=== PATIENT | female | born 1955 | race Caucasian/White ===

== ENCOUNTER 2018-03-16 00:32 | Outpatient (CLI) | payer BC, SELFPAY ==
--- NOTE | 2018-03-16 09:14 | DI.MAMMO_ITS ---
SYMPTOM/DIAGNOSIS: ABNL MAMMO RT BREAST R92.8, 6 MO F/U RIGHT BREAST MAMMOGRAM: Mammograms were interpreted according to the usual protocol including computer analysis with CAD system, tomosynthesis and C view imaging. Craniocaudad and medial lateral images of the breast were obtained today. The breast tissue is of moderate radiodensity. There is no apparent mass and there are no suspicious calcifications and there has been no significant interval change when compared with prior images. SUMMARY: No evidence of malignancy, Category 1. Yearly screening mammography is recommended. Breast density category B. MQSA ASSESSMENT OF FINDINGS: Negative. Category 1. Patient will receive a letter notifying them of these results. BI-RADS category B. There are scattered areas of fibroglandular density.
== END 2018-03-16 00:52 ==
PROVIDERS: PCP Internal Medicine; Visit Provider Obstetrics & Gynecology Gynecology
DX: Z12.31 Encounter for screening mammogram for malignant neoplasm of breast (principal); R92.8 Other abnormal and inconclusive findings on diagnostic imaging of breast; N64.59 Other signs and symptoms in breast
CPT/HCPCS: 77061; 77065; G0279

== ENCOUNTER 2018-09-13 10:53 | Outpatient (REF) | payer BC, SELFPAY ==
--- NOTE | 2018-09-13 10:00 | PAPFT_PTH ---
PATIENT: Madison Quan LOC: [facility] U#:[id number] AGE/SX: 63/F ROOM: RE09/13/[address]: Audrey Gutierrez : 1955 BED: DIS: 09/13/2018 SPEC #: [id number] RECD: 09/13/18 12:59 STATUS: TANG REEdgard #: [id number] SHAUN: 09/13/18 10:[address]: Audrey Gutierrez DEPT: [facility] Cytology RECD BY: Edel Pacheco ENTERED: 09/13/18 12:59 SP TYPE: PAPFT OTHR DR: Roni Babin Tissues: 1 - CX/ENDOCX FOR PAP SMEARS Procedures: PAP THIN PREP/UVM Screening HPV DNA PROBE Comments: [id number]
== END 2018-09-13 11:13 ==
LOC: LBN 10:53
PROVIDERS: PCP Internal Medicine; Visit Provider Obstetrics & Gynecology Gynecology
DX: Z12.4 Encounter for screening for malignant neoplasm of cervix (principal); Z11.51 Encounter for screening for human papillomavirus (HPV)
CPT/HCPCS: 88142; 87624

== ENCOUNTER 2019-12-19 11:33 | Outpatient (REF) | payer BC, SELFPAY ==
--- NOTE | 2019-12-19 11:00 | PAPFT_PTH ---
PATIENT: Madison Quan LOC: [facility] U#:[id number] AGE/SX: 64/F ROOM: RE12/19/[address]: GISELA Jackman : 1955 BED: DIS: 12/19/2019 SPEC #: [id number] RECD: 12/19/19 12:45 STATUS: TANG REQ #: [id number] SHAUN: 12/19/19 11:[address]: Christy Lazaro DEPT: [facility] Cytology RECD BY: Edel Pacheco ENTERED: 12/19/19 12:46 SP TYPE: PAPFT OTHR DR: Roni Babin Tissues: 1 - CX/ENDOCX FOR PAP SMEARS Procedures: PAP THIN PREP/UVM Screening HPV DNA PROBE Comments: [id number]
== END 2019-12-19 11:53 ==
LOC: LBN 11:33
PROVIDERS: PCP Internal Medicine; Visit Provider Nurse Practitioner Family
DX: Z12.4 Encounter for screening for malignant neoplasm of cervix (principal); Z11.51 Encounter for screening for human papillomavirus (HPV)
CPT/HCPCS: 88142; 87624

== ENCOUNTER 2020-01-05 13:14 | Outpatient (REF) | payer BC, SELFPAY ==
[2020-01-05 21:45] LABS: Calculated LDL 143 mg/dL (<100); Cholesterol 259 mg/dL (<200); HDL Cholesterol 101 mg/dL (40-60); Triglyceride 79 mg/dL (<150)
== END 2020-01-05 13:34 ==
LOC: NCHCN 13:14
PROVIDERS: PCP Internal Medicine; Visit Provider Internal Medicine
DX: Z00.00 Encounter for general adult medical examination without abnormal findings (principal)
CPT/HCPCS: 80061

== ENCOUNTER 2021-01-27 13:15 | Outpatient (REF) | payer BC, SELFPAY ==
[2021-01-29 13:36] LABS: COVID-19 RT-PCR UVMMC Result Negative (Negative)
== END 2021-01-27 13:16 | disposition home or self-care (01) ==
LOC: NCHCN 13:15
PROVIDERS: PCP Internal Medicine; Visit Provider Internal Medicine
DX: Z20.822 Contact with and (suspected) exposure to COVID-19 (principal)
CPT/HCPCS: U0003

== ENCOUNTER 2021-02-17 01:07 | Outpatient (CLI) | payer BC, SELFPAY ==
--- NOTE | 2021-02-17 09:00 | DI.MAMMO_ITS ---
Exam(s) MAMMO SCREENING EXAM: MAMMO SCREENING CLINICAL HISTORY: screening TECHNIQUE: Bilateral full field digital CC and MLO mammographic images were obtained with 3D tomosyn thesis and utilizing computer aided detection (CAD). COMPARISON: Available for comparison. FINDINGS: Masses/Architectural Distortion: None seen. Microcalcifications: No suspicious pleomorphic-type are seen. Skin Thickening/Nipple Retraction: None. IMPRESSION: 1. No significant interval change with no specific features of malignancy noted. 2. Unless there is more urgent need, screening mammography is recommended, as per [employer] guidelines. BI-RADS Category 1 - Negative Breast Density - Category C - Heterogeneously dense Breast density category C or D implies that the patient has dense breast tissue. Dense breast tissue is very common and is not abnormal but dense breast tissue can make it harder to find cancer on a ma mmogram. Also, dense breast tissue may increase their breast cancer risk. This information about the result of the mammogram report was provided to the patient to raise their awareness. Use this report when you speak with the patient about their risks for breast cancer, which includes their family hist ory. At that time, you may recommend for more screening tests (Ultrasound or MRI) as they might be us eful based on their risk. A negative radiographic report should not delay biopsy if a dominant or clinically suspicious mass is present. Up to ten percent of cancers are not identified on mammography. A negative report may reinforce clinical impression. Adenosis and dense breasts may obscure an underlying neoplasm. False positive reports average 6 to 10%. Patient will receive a letter notifying them of these results.
== END 2021-02-17 01:27 ==
PROVIDERS: PCP Internal Medicine; Visit Provider Nurse Practitioner Family
DX: Z12.31 Encounter for screening mammogram for malignant neoplasm of breast (principal)
CPT/HCPCS: 77063; 77067

== ENCOUNTER 2021-04-08 16:36 | Outpatient (REF) | payer BC, SELFPAY ==
[2021-04-08 22:09] LABS: Abs Immature Grans 0.01 10^3/uL (0.0-0.06); Absolute Basophil Count 0.04 10^3/uL (0.0-0.2); Absolute Eosinophil Count 0.19 10^3/uL (0.0-0.7); Absolute Lymphocyte Count 1.12 10^3/uL (1.2-3.4); Absolute Monocyte Count 0.37 10^3/uL (0.1-0.8); Absolute Neutrophil Count 4.85 10^3/uL (1.2-6.7); Basophils % 0.6; Eosinophils % 2.9; HGB 11.6 g/dL (11.2-15.7); Immature Grans % 0.2; MCHC 32.2 % (32.0-36.0); MCV 99.4 fL (80-95); MPV 12.1 fL (8.0-11.0); Monocytes % 5.6; Neutrophils % 73.7; Nucleated RBC 0 %; Platelet Count 188 10^3/uL (130-400); RBC 3.62 10^6/uL (3.93-5.22); RDW 14.3 % (11.7-14.6); WBC 6.58 10^3/uL (4.4-10.8)
[2021-04-08 22:19] LABS: ALT 24 U/L (14-59); AST 24 U/L (15-37); Albumin 4.2 g/dL (3.4-5.0); Alkaline Phosphatase 84 U/L (46-116); Anion Gap 7.2 mmol/L (3-11); BUN 16 mg/dL (7-18); Bilirubin, Total 0.4 mg/dL (0.2-1.0); CO2 28.8 mmol/L (21.0-32.0); CREATININE 0.8 mg/dL (0.55-1.02); Calcium 9.5 mg/dL (8.5-10.1); Chloride 99 mmol/L (98-107); Glucose 89 mg/dL (74-106); Potassium 4.8 mmol/L (3.5-5.1); Sodium 135 mmol/L (136-145); Total Protein 7.6 g/dL (6.4-8.2)
[2021-04-08 22:27] LABS: Prothrombin Time 9.9 sec (9.3-11.0)
== END 2021-04-08 16:37 | disposition home or self-care (01) ==
LOC: NCHCN 16:36
PROVIDERS: PCP Internal Medicine; Visit Provider Internal Medicine
DX: C15.3 Malignant neoplasm of upper third of esophagus (principal)
CPT/HCPCS: 80053; 85025; 85610

== ENCOUNTER 2022-02-25 10:48 | Outpatient (REF) | payer BC, SELFPAY ==
--- NOTE | 2022-02-25 10:15 | PAPFT_PTH ---
PATIENT: Madison Quan LOC: [facility] U#:[id number] AGE/SX: 66/F ROOM: RE02/25/[address]: Anisha Newman NP : 1955 BED: DIS: 02/25/2022 SPEC #: [id number] RECD: 02/25/22 12:38 STATUS: TANG REQ #: [id number] SHAUN: 02/25/22 10:[address]: Christy Lazaro DEPT: [facility] Cytology RECD BY: Edel Pacheco ENTERED: 02/25/22 12:38 SP TYPE: PAPFT OTHR DR: Roni Babin Tissues: 1 - CX/ENDOCX FOR PAP SMEARS Procedures: PAP THIN PREP/UVM Screening HPV DNA PROBE Comments: [id number]
== END 2022-02-25 10:49 | disposition home or self-care (01) ==
LOC: LBN 10:48
PROVIDERS: PCP Internal Medicine; Visit Provider Nurse Practitioner Women's Health
DX: Z12.4 Encounter for screening for malignant neoplasm of cervix (principal); Z11.51 Encounter for screening for human papillomavirus (HPV)
CPT/HCPCS: 88142; 87624

== ENCOUNTER 2022-05-01 08:36 | Inpatient (IN) | payer BC, SELFPAY ==
[2022-05-01] VITALS (33 sets, daily range): BP systolic 82–125; BP diastolic 51–74; PULSE 71–105; RESP 13–22; TEMP 36–37.5; O2SAT 96–100; BMI 16.7
[2022-05-01 09:14] LABS: Abs Immature Grans 0.04 10^3/uL (0.0-0.06); Absolute Basophil Count 0.03 10^3/uL (0.0-0.2); Absolute Eosinophil Count 0.24 10^3/uL (0.0-0.7); Absolute Lymphocyte Count 1.28 10^3/uL (1.2-3.4); Absolute Monocyte Count 0.31 10^3/uL (0.1-0.8); Absolute Neutrophil Count 3.89 10^3/uL (1.2-6.7); Basophils % 0.5; Eosinophils % 4.1; HCT 27.3 % (36.0-46.0); Immature Grans % 0.7; Lymphocytes % 22.1; MCV 94 fL (80-95); MPV 10.5 fL (8.0-11.0); Monocytes % 5.4; Neutrophils % 67.2; Platelet Count 288 10^3/uL (130-400); RDW 13.8 % (11.7-14.6); RDW-SD 47.7 fL; WBC 5.79 10^3/uL (4.4-10.8)
--- NOTE | 2022-05-01 09:15 | RT.EKG_ITS ---
APPROVED REPORT Exam: Resting ECG Reason for Exam: lightheadedness Patient Location: E HR:87 bpm ECG Measurements Heart Rate 87 AXIS KS 153 P 81 QRSd 135 QRS 87 QT 376 T -2 QTc 452 Conclusion Sinus rhythm...normal P axis, V-rate 60- 99 Probable left atrial enlargement...P >50mS, <-0.10mV V1 Right bundle branch block...QRSd>120, terminal axis(90,270) sinus rhythm 87, normal axis, right bundle branch block present on prior 08/15/2010, no STEMI, nondiag nostic EKG
[2022-05-01 09:25] LABS: INR 0.9 (0.9-1.1); Prothrombin Time 9.4 sec (9.3-11.0)
--- NOTE | 2022-05-01 09:32 | W.ED.GENAD ---
Discharge Plan Disposition Patient Disposition: [facility] INPATIENT Condition: Good Discharge Details Chief Complaint: GI Bleed Clinical Impression: Acute upper gastrointestinal bleeding, Anemia Admit Date/Time: 05/01/22 11:58 Admit Provider: Tarun Garcia Attending Provider: Tarun Garcia Primary Care Provider: Roni Babin ED Provider: Addy Griggs Discharge Instructions Activity:: Activity as Tolerated Equipment/Supplies:: No Equipment Needed Diet:: Normal Diet Discharge Data Discharge Date/Time-TO BE ENTERED AT DEPARTURE: 05/01/22 15:19 Medical Decision Making <Jessica Griggs MD - Last Filed: 07/25/22 09:51> Concern for anemia, GI bleed, metabolic/electrolyte derangement, less likely acute coronary syndrome, pulmonary embolism, arrhythmia. Exam/history at this time is not consistent with sepsis, meningitis, CVA. Plan for EKG, IV placement, screening labs. Called [facility] to discuss Pt with her recent treating physician. Pt signed out to Dr. Addy Griggs with labs, discussion with [facility] pending. Medical Records Medical records reviewed: Yes I reviewed the patient's medical records. ECG Data Attestation: I personally reviewed and interpreted this ECG (s) as follows: Interpretation: EKG shows sinus rhythm 87, normal axis, right bundle branch block present on prior 08/15/2010, no STEMI, nondiagnostic EKG HPI <Jessica Griggs MD - Last Filed: 07/25/22 09:51> General Mode of arrival: ambulatory. Date/Time Provider Initiated Documentation: 05/01/22 08:38. Limitations to Documentation: no limitations. Information obtained by: patient, family, RN notes reviewed and old records reviewed. 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 Patient writes on tablet to communicate, patient is also accompanied by her who provides additional history. Patient reports that she has had chronic esophageal strictures since laryngectomy. She does not have a feeding tube in place. She reports that she was recently at [facility] on 04/27/2022 for esophageal dilation. Patient reports that since 04/23/2022 patient has been feeling somewhat lightheaded and nauseated. She states that this has worsened since having her dilation, and she has also begun to feel generally weak. She reports that since having the dilation she is noticed that her stools seem quite dark. There has not been a change in consistency in her stools, she denies diarrhea or constipation. She denies any pain, fever, vomiting, cough, shortness of breath, focal weakness, rash. Related Data Home Medications Medication Instructions Recorded Confirmed fluticasone 100 mcg-salmeterol 50 1 puff inhalation BID 01/31/13 05/01/22 mcg/dose blistr powdr for inhalation (Advair Diskus) lorazepam 0.5 mg tablet 0.5 mg PO PRN 01/31/13 05/01/22 mometasone 50 mcg/actuation nasal 2 spry NS DAILY 01/31/13 05/01/22 spray (Nasonex) multivitamin (Daily Vitamin tablet) 1 ea PO DAILY 01/31/13 05/01/22 albuterol sulfate 90 mcg/actuation 1 - 2 puff inhalation Q4H PRN 07/31/14 05/01/22 aerosol inhaler (ProAir HFA) acetaminophen 325 mg capsule 325 mg PO ONCE PRN 02/25/22 05/01/22 (Tylenol) artifi.tears(hypromellose)(PF) 0.3 1 drp ophthalmic (eye) 4-8XD PRN 02/25/22 05/01/22 % eye drops montelukast 4 mg oral granules in mg feeding tube 02/25/22 02/25/22 packet Allergies Allergy/AdvReac Type Severity Reaction Status Date / Time No Known Allergies Allergy Verified 05/01/22 08:45 General Stated Complaint: GI Bleed MEGA: 3 Review of Systems <Jessica Griggs MD - Last Filed: 07/25/22 09:51> Narrative: Constitutional: denies fevers, reports generalized weakness Eyes: denies eye pain ENT: denies ear pain, dental pain, sore throat Cardiovascular: denies chest pain, edema, reports lightheadedness Respiratory: denies SOB, cough GI: denies abdominal pain, vomiting, diarrhea, reports black stools : denies flank pain MSK: denies back pain, neck pain, arthralgias, myalgias Skin: denies rash Neuro: denies headaches, numbness, weakness PFSH <Jessica Griggs MD - Last Filed: 07/25/22 09:51> All Active Problems Postmenopausal (Acute) Absent esophagus (Acute) Underweight (Acute) 08/2018 BMI 17.9 Hx of abnormal cervical Pap smear (Acute) 2018 ASC-H. Nl colpo bx. Plan repeat Pap/HPV in 2018 and 2019. Asthma (Acute 01/31/13) Atypical squamous cells cannot exclude high grade squamous intraepithelial lesion on cytologic smear of cervix (ASC-H) (Acute 08/19/17) Medical History Anemia Throat cancer Removal and rebuilt esophagus. Dilation of throat Surgical History Absent esophagus Removal and rebuild Family History Father Mother Social History Smoking/Tobacco Use Status: Former Tobacco Use Second Hand Exposure: No Smoking risk assessment performed?: Yes Alcohol Intake: current Alcohol Intake frequency: 0-2 drinks per day Drug use: Never Substance use type: does not use Household members: spouse and other Details: [employer] Housing: other Details: has been undergoing extensive renovations for past 8mo Number of Children: 3 What is your relationship status?: Panel score (0-1 are the most socially isolated patients): 1 Seatbelt use: always Female Reproductive History Menstrual Menopause type: natural History History 3 Para Hx # Term Pregnancies 3 Multiple births Hx # Pregnancies Ectopic pregnancies AB induced Hx Number of Living Children AB spontaneous Exam <Jessica Griggs MD - Last Filed: 07/25/22 09:51> Narrative Exam Narrative: Constitutional: well and [id number] HENT: head atraumatic/normocephalic/normal inspection, mucous membranes moist Eyes: conjunctiva normal, sclera normal, pupils 3mm b/l Neck: no stridor, normal ROM, trachea midline Chest: normal inspection Resp: normal work of breathing, LCTAB Cardio: normal rate, normal rhythm, no murmur appreciated GI: abdomen soft, non-tender, non-distended Back: normal inspection, no rash Skin: warm, dry, normal color, no rash Neuro: alert, not altered, grossly non-focal, normal tone Ext: no edema Psych: normal mood, normal affect, normal behavior Course <Jessica Griggs MD - Last Filed: 07/25/22 09:51> Vital Signs Vital signs: Vital Signs Temperature 36.3 C L 05/01/22 08:41 Pulse 101 H 05/01/22 08:41 Respiratory Rate 16 05/01/22 08:41 Blood Pressure 121/74 05/01/22 08:41 Pulse Oximetry 100 05/01/22 08:41 Temperature 36.3 C L 05/01/22 08:41 Temperature Source Tympanic 05/01/22 08:41 Pulse 101 H 05/01/22 08:41 Respiratory Rate 16 05/01/22 08:41 Respiratory Effort Non-Labored 05/01/22 08:44 Blood Pressure 121/74 05/01/22 08:41 Blood Pressure Position Sitting 05/01/22 08:41 Pulse Oximetry 100 05/01/22 08:41 Oxygen Delivery Method Room Air 05/01/22 08:41 Oxygen Flow Rate 0 05/01/22 08:41 Pain Level 0 05/01/22 08:41 Lab/Test Results Lab/Test Results: Laboratory Tests Range/Units 05/01/22 05/01/22 09:02 09:02 WBC (4.4-10.8) 10^3/uL 5.79 RBC (3.93-5.22) 10^6/uL 2.90 L Hgb (11.2-15.7) g/dL 9.0 L Hct (36.0-46.0) % 27.3 L MCV (80-95) fL 94 MCH (27.0-33.0) pg 31.0 MCHC (32.0-36.0) % 33.0 RDW (11.7-14.6) % 13.8 Plt Count (130-400) 10^3/uL 288 MPV (8.0-11.0) fL 10.5 Immature Gran % 0.7 Neutrophils % 67.2 Lymphocytes % 22.1 Monocytes % 5.4 Eosinophils % 4.1 Basophils % 0.5 Nucleated RBC % (0.0-0.3) % 0.0 Absolute Neutrophils (1.2-6.7) 10^3/uL 3.89 Absolute Lymphocytes (1.2-3.4) 10^3/uL 1.28 Absolute Monocytes (0.1-0.8) 10^3/uL 0.31 Absolute Eosinophils (0.0-0.7) 10^3/uL 0.24 Absolute Basophils (0.0-0.2) 10^3/uL 0.03 PT (9.3-11.0) sec 9.4 INR (0.9-1.1) 0.9 PAWSS <Jessica Griggs MD - Last Filed: 07/25/22 09:51> Have you Been Recently Intoxicated or Drunk Within the Last 30 days?: No Have you Ever Experienced Previous Episodes of Alcohol Withdrawal?: No Have you ever Experienced Withdrawal Seizures?: No Have you ever Experienced Delirium Tremens(DT)s?: No Have you ever undergone Alcohol Rehabilitation Treatment (i.e, inpt ot outpatient treatment programs)?: No Have you ever Experienced Blackouts?: No Have you ever Combined Alcohol with other Downers within the last 90 days?: No Have you ever Combined Alcohol with any other Substance of Abuse during the last 90 days?: No Result: 0 <Addy Griggs MD - Last Filed: 05/07/22 08:39> Result: 0
[2022-05-01 09:36] LABS: ALT 16 U/L (14-59); AST 19 U/L (15-37); Albumin 3.5 g/dL (3.4-5.0); Alkaline Phosphatase 63 U/L (46-116); BUN 26 mg/dL (7-18); Bilirubin, Total 0.2 mg/dL (0.2-1.0); CREATININE 0.8 mg/dL (0.55-1.02); Calcium 8.6 mg/dL (8.5-10.1); Chloride 100 mmol/L (98-107); Estimated GFR 82.23 (mL/min/1.73m2); Glucose 161 mg/dL (74-106); Magnesium 1.7 mg/dL (1.8-2.4); Potassium 3.7 mmol/L (3.5-5.1); Sodium 134 mmol/L (136-145); Total Protein 7.1 g/dL (6.4-8.2); Troponin I < 50 ng/L (<or=60)
[2022-05-01 10:17] LABS: D-Dimer 516 ng/mlFEU (<500)
--- NOTE | 2022-05-01 12:23 | ED.PROG_ITS ---
Date of service: 05/01/22 Time of Service: 12:23 Medical Decision Making Care was signed out by Dr. Jessica Griggs with plan to discuss case with [facility] and determine disposition. I reviewed labs. Given symptomatic anemia, plan to treat with 1 unit PRBC. Patient provided verbal informed consent to receiving blood products. I called and spoke with Dr. Garcia, on-call general surgery, discussed ED presentation course, he will admit the patient with plan for upper endoscopy. I received call back from Dr. Campbell, on-call thoracic surgeon at [facility], discussed ED presentation course, he agrees with plan for endoscopy here to assess if ongoing bleeding. He does note minimal dilation on Wednesday to 8 mm. He also notes recent hemoglobin on 04 27 was 12. Lab Data Lab results reviewed: Yes I reviewed the patient's lab results. Labs: Laboratory Tests Range/Units 05/01/22 05/01/22 05/01/22 09:02 09:02 09:02 WBC (4.4-10.8) 10^3/uL 5.79 RBC (3.93-5.22) 10^6/uL 2.90 L Hgb (11.2-15.7) g/dL 9.0 L Hct (36.0-46.0) % 27.3 L MCV (80-95) fL 94 MCH (27.0-33.0) pg 31.0 MCHC (32.0-36.0) % 33.0 RDW (11.7-14.6) % 13.8 Plt Count (130-400) 10^3/uL 288 MPV (8.0-11.0) fL 10.5 Immature Gran % 0.7 Neutrophils % 67.2 Lymphocytes % 22.1 Monocytes % 5.4 Eosinophils % 4.1 Basophils % 0.5 Nucleated RBC % (0.0-0.3) % 0.0 Absolute Neutrophils (1.2-6.7) 10^3/uL 3.89 Absolute Lymphocytes (1.2-3.4) 10^3/uL 1.28 Absolute Monocytes (0.1-0.8) 10^3/uL 0.31 Absolute Eosinophils (0.0-0.7) 10^3/uL 0.24 Absolute Basophils (0.0-0.2) 10^3/uL 0.03 PT (9.3-11.0) sec 9.4 INR (0.9-1.1) 0.9 D-Dimer (<500) ng/mlFEU Sodium (136-145) mmol/L 134 L Potassium (3.5-5.1) mmol/L 3.7 Chloride (98-107) mmol/L 100 Carbon Dioxide (21.0-32.0) mmol/L 28.0 Anion Gap (3-11) mmol/L 6.0 BUN (7-18) mg/dL 26 H Creatinine (0.55-1.02) mg/dL 0.8 Est GFR (CKD-EPI 2020) (mL/min/1.73m2) 82.23 Glucose (74-106) mg/dL 161 H Calcium (8.5-10.1) mg/dL 8.6 Magnesium (1.8-2.4) mg/dL 1.7 L Total Bilirubin (0.2-1.0) mg/dL 0.2 AST (15-37) U/L 19 ALT (14-59) U/L 16 Alkaline Phosphatase (46-116) U/L 63 Troponin I (<or=60) ng/L < 50 Total Protein (6.4-8.2) g/dL 7.1 Albumin (3.4-5.0) g/dL 3.5 Patient ABO/Rh Antibody Screen Crossmatch Range/Units 05/01/22 05/01/22 09:02 09:02 WBC (4.4-10.8) 10^3/uL RBC (3.93-5.22) 10^6/uL Hgb (11.2-15.7) g/dL Hct (36.0-46.0) % MCV (80-95) fL MCH (27.0-33.0) pg MCHC (32.0-36.0) % RDW (11.7-14.6) % Plt Count (130-400) 10^3/uL MPV (8.0-11.0) fL Immature Gran % Neutrophils % Lymphocytes % Monocytes % Eosinophils % Basophils % Nucleated RBC % (0.0-0.3) % Absolute Neutrophils (1.2-6.7) 10^3/uL Absolute Lymphocytes (1.2-3.4) 10^3/uL Absolute Monocytes (0.1-0.8) 10^3/uL Absolute Eosinophils (0.0-0.7) 10^3/uL Absolute Basophils (0.0-0.2) 10^3/uL PT (9.3-11.0) sec INR (0.9-1.1) D-Dimer (<500) ng/mlFEU 516 H Sodium (136-145) mmol/L Potassium (3.5-5.1) mmol/L Chloride (98-107) mmol/L Carbon Dioxide (21.0-32.0) mmol/L Anion Gap (3-11) mmol/L BUN (7-18) mg/dL Creatinine (0.55-1.02) mg/dL Est GFR (CKD-EPI 2020) (mL/min/1.73m2) Glucose (74-106) mg/dL Calcium (8.5-10.1) mg/dL Magnesium (1.8-2.4) mg/dL Total Bilirubin (0.2-1.0) mg/dL AST (15-37) U/L ALT (14-59) U/L Alkaline Phosphatase (46-116) U/L Troponin I (<or=60) ng/L Total Protein (6.4-8.2) g/dL Albumin (3.4-5.0) g/dL Patient ABO/Rh O Positive Antibody Screen NEGATIVE Crossmatch See Detail Discharge Plan Disposition Patient Disposition: [facility] INPATIENT Condition: Serious Discharge Details Chief Complaint: GI Bleed Clinical Impression: Acute upper gastrointestinal bleeding, Anemia Primary Care Provider: Roni Babin ED Provider: Addy Griggs Home Meds and New Rx's Prescriptions: No Action acetaminophen [Tylenol] 325 mg capsule 325 mg PO ONCE PRN montelukast 4 mg granules in packet feeding tube artifi.tears(hypromellose)(PF) 0.3 % drops 1 drp ophthalmic (eye) 4-8XD PRN multivitamin [Daily Vitamin] 1 EACH tablet 1 ea PO DAILY lorazepam 0.5 MG tablet 0.5 mg PO PRN mometasone [Nasonex] 17 GM spray,non-aerosol 2 spry NS DAILY fluticasone propion-salmeterol [Advair Diskus] 1 EACH blister with device 1 puff Inhalation BID albuterol sulfate [ProAir HFA] 8.5 GM HFA aerosol inhaler 1 - 2 puff Inhalation Q4H PRN
[2022-05-01 12:58] LABS: Source Nasal/Nares
[2022-05-01 13:32] LABS: COVID-19 PCR Negative (Negative)
--- NOTE | 2022-05-01 13:58 | ANES.PREOP_ITS ---
General Info Date of Service Date Performed: 05/01/22 Height: 5 ft 3 in Weight: 42.955 kg Body Mass Index (BMI): 16.7 Surgical Procedure: Operation Date: 05/01/22 14:05 Proposed Procedure Side Surgeon p Gastroscopy Tarun Garcia MD Meds Allergies and Home Medications Allergies Allergy/AdvReac Type Severity Reaction Status Date / Time No Known Allergies Allergy Verified 05/01/22 08:45 Home Medication Medication Instructions Recorded fluticasone 100 mcg-salmeterol 50 1 puff inhalation BID 01/31/13 mcg/dose blistr powdr for inhalation (Advair Diskus) lorazepam 0.5 mg tablet 0.5 mg PO PRN 01/31/13 mometasone 50 mcg/actuation nasal 2 spry NS DAILY 01/31/13 spray (Nasonex) multivitamin (Daily Vitamin tablet) 1 ea PO DAILY 01/31/13 albuterol sulfate 90 mcg/actuation 1 - 2 puff inhalation Q4H PRN 07/31/14 aerosol inhaler (ProAir HFA) acetaminophen 325 mg capsule 325 mg PO ONCE PRN 02/25/22 (Tylenol) artifi.tears(hypromellose)(PF) 0.3 1 drp ophthalmic (eye) 4-8XD PRN 02/25/22 % eye drops montelukast 4 mg oral granules in mg feeding tube 02/25/22 packet Current Visit Medications: Current Medications Generic Name Dose Route Start Last Admin Trade Name Freq PRN Reason Stop Dose Admin Sodium Chloride 500 mls @ 0 mls/hr 05/01/22 08:47 Saline 500ml Bag IV PRN PRN As Directed Sodium Chloride 500 mls @ 0 mls/hr 05/01/22 11:58 Saline 500ml Bag IV PRN PRN As Directed IV Miscellaneous Supplies 1 each 05/01/22 09:00 Iv Access IV DIRECTED ASHISH IV Miscellaneous Supplies 1 each 05/01/22 09:30 Iv Access IV DIRECTED ASHISH IV Miscellaneous Supplies 1 each 05/01/22 12:00 Iv Access IV DIRECTED ASHISH Sodium Chloride 0 ml 05/01/22 08:47 Normal Saline Flush 10 Ml Syr IVP PRN PRN Sodium Chloride 0 ml 05/01/22 09:29 Normal Saline Flush 10 Ml Syr IVP PRN PRN Sodium Chloride 0 ml 05/01/22 11:58 Normal Saline Flush 10 Ml Syr IVP PRN PRN PFSH Active Problems Active Problems: Problem Status Onset Code Acute upper gastrointestinal bleeding K92.2 Anemia D64.9 Postmenopausal Z78.0 Absent esophagus Q39.8 Underweight R63.6 Hx of abnormal cervical Pap smear Z87.898 Asthma 01/31/13 J45.909 Atypical squamous cells cannot exclude high grade squamous intraepithelial lesion on cytologic smear of cervix (ASC-H) 08/19/17 R87.611 Medical History Medical History Throat cancer Removal and rebuilt esophagus. Dilation of throat Surgical History Surgical History Absent esophagus Removal and rebuild Tobacco Smoking/Tobacco Use Status: Former Tobacco Use Second hand exposure: No Alcohol Alcohol Intake: current Alcohol intake frequency: 0-2 drinks per day Substance Use Substance use: Never Substance use type: does not use Prental History History 3 Para Hx # Term Pregnancies 3 Multiple births Hx # Pregnancies Ectopic pregnancies AB induced Hx Number of Living Children AB spontaneous Vital Signs and Lab Results Vital Signs Most Recent Vital Signs in EMR: Most Recent Vital Signs Temp Pulse Resp BP Pulse Ox 36.1 C L 83 15 104/70 99 05/01/22 13:29 05/01/22 13:29 05/01/22 13:29 05/01/22 13:29 05/01/22 13:29 Lab Results Result Diagrams: 05/01/22 09:02 05/01/22 09:02 Blood Type / Crossmatch: Patient ABO/Rh O Positive 05/01/22 Antibody Screen NEGATIVE 05/01/22 Crossmatch See Detail 05/01/22 Complete Blood Count: White Blood Count 5.79 10^3/uL (4.4-10.8) 05/01/22 09:02 Red Blood Count 2.90 10^6/uL (3.93-5.22) L 05/01/22 09:02 Hemoglobin 9.0 g/dL (11.2-15.7) L 05/01/22 09:02 Hematocrit 27.3 % (36.0-46.0) L 05/01/22 09:02 Platelet Count 288 10^3/uL (130-400) 05/01/22 09:02 Complete Metabolic Panel: Sodium 134 mmol/L (136-145) L 05/01/22 09:02 Potassium 3.7 mmol/L (3.5-5.1) 05/01/22 09:02 Chloride 100 mmol/L (98-107) 05/01/22 09:02 Carbon Dioxide 28.0 mmol/L (21.0-32.0) 05/01/22 09:02 BUN 26 mg/dL (7-18) H 05/01/22 09:02 Creatinine 0.8 mg/dL (0.55-1.02) 05/01/22 09:02 Est GFR (CKD-EPI 2020) 82.23 (mL/min/1.73m2) 05/01/22 09:02 Magnesium 1.7 mg/dL (1.8-2.4) L 05/01/22 09:02 Calcium 8.6 mg/dL (8.5-10.1) 05/01/22 09:02 Albumin 3.5 g/dL (3.4-5.0) 05/01/22 09:02 Glucose 161 mg/dL (74-106) H 05/01/22 09:02 Liver Function Panel: Alanine Aminotransferase (ALT/SGPT) 16 U/L (14-59) 05/01/22 09: 02 Aspartate Amino Transf (AST/SGOT) 19 U/L (15-37) 05/01/22 09:02 Coagulation Panel: INR International Normalized Ratio 0.9 (0.9-1.1) 05/01/22 09:0 2 Prothrombin Time 9.4 sec (9.3-11.0) 05/01/22 09:02 D-Dimer 516 ng/mlFEU (<500) H 05/01/22 09:02 Cardiac Panel: Troponin I < 50 ng/L (<or=60) 05/01/22 Arterial Blood Gas: No Data to Display Venous Blood Gas: No Data to Display Pancreas Panel: No Data to Display Thyroid Panel: No Data to Display Infectious Disease: Coronavirus (COVID-19)(PCR) Negative (Negative) 05/01/22 12:54 Coronavirus 2019 Source Nasal/Nares 05/01/22 12:54 Blood Cultures: No Data to Display Toxicology Panel: No Data to Display Imaging and Studies Imaging and Studies Study information below may be from another EMR and interpreted by another provider. Please see original notes in EMR for more complete details. EKG Summary: 05/01/2022: Sinus rhythm...normal P axis, V-rate 60- 99 Probable left atrial enlargement...P >50mS, <-0.10mV V1 Right bundle branch block...QRSd>120, terminal axis(90,270) sinus rhythm 87, normal axis, right bundle branch block present on prior 08/15/2010, no STEMI, nondiagnostic EKG Anesthesia Assessment and Plan Anesthesia History Personal History: No History of Anesthesia Complications Family History: No Family History of Anesthesia Complications Exercise Tolerance Exercise Tolerance: Metabolic Equivalents>4 Cardiac & Pulmonary Exam Cardiac Exam: Normal S1/S2 Heart Sounds Pulmonary Exam: Clear Bilateral Breath Sounds Implantable Cardiac Device Does patient have a Pacemaker or an ICD?: No Airway Exam Known Difficult Airway: No Mallampati Class: Unable to Assess Mouth Opening: Unable to Assess Thyromental Distance: Other Neck Range of Motion: Other Neck Circumference: Normal Teeth Condition: Other ASA Classification ASA Score: ASA 3 Emergency Case?: No NPO Status NPO Status: NPO Clears >2 hours, Solids >8 hours Anesthesia Plan Resuscitation Status: Full Code Anesthesia Technique: MAC Anesthesia Airway Planned: Natural Airway Monitors Used: Standard Monitors Preoperative Comments:: 66 yo female for EGD to rule out upper GI bleed. She had tongue cancer leading to total laryngectomy, TEP, XRT. has had difficulty swallowing recently for which she has had esophageal dilations perfom[place] [facility]. last one within the past few weeks. hgb today was ~ 9. Sig PMHx: tongue CA, laryngectomy, anemia, asthma, former smoker, occ EtOH.
--- NOTE | 2022-05-01 14:02 | HPE_ITS ---
Date of service: 05/01/22 Time of Service: 14:02 Assessment and Plan Assessment and plan (1) Acute upper gastrointestinal bleeding: Status: Acute Assessment and plan: This seems most consistent with post procedural bleeding from esophageal dilation. Transfuse blood products now. 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 She got a surgical history that includes a partial glossectomy approximately 13 years ago. More recently, she developed local regional recurrence requiring total laryngectomy. She is currently cancer free. Unfortunately, as a complication of her laryngectomy and radiation, she has developed esophageal stricture. She is required multiple rounds of esophageal dilation. This is typically performed at [facility]. The last dilation occurred on April 27. At that time, there was a little bit of bleeding from the mucosa. She was discharged home, and developed a little bit of lightheadedness and fatigue over the past 48 hours or so. Additionally, she describes several episodes of melena. Review of Systems Constitutional Constitutional: Denies body ache(s), Denies chills, Denies difficulty sleeping, Reports fatigue, Reports lethargy, Reports weakness and Denies weight loss Eyes Eyes: Denies change in vision ENT Ears, Nose, Mouth, and Throat: Denies abnormal hearing, Reports dysphagia, Denies mouth lesions, Denies mouth pain, Reports odynophagia and Denies sore throat Cardiovascular Cardiovascular: Denies chest pain, Denies syncope, Denies irregular heart rhythm, Reports lightheadedness and Denies dyspnea Respiratory Respiratory: Denies chest congestion, Denies cough and Denies dyspnea Gastrointestinal Gastrointestinal: Denies abdominal pain, Reports melena, Reports dysphagia and Reports odynophagia Genitourinary Genitourinary: Denies hematuria and Denies urinary urgency Musculoskeletal Musculoskeletal: Reports muscle weakness Neurologic Neurologic: Denies abnormal hearing, Denies syncope, Denies localized weakness, Denies seizure-like activity and Reports weakness Psychiatric Psychiatric: Reports system reviewed and no additional complaints, except as documented Endocrine Endocrine: Reports fatigue Hematologic/Lymphatic Hematologic/Lymphatic: Denies easy bleeding and Denies easy bruising PFSH All Active Problems Acute upper gastrointestinal bleeding (Acute) Anemia (Chronic) Postmenopausal (Acute) Absent esophagus (Acute) Underweight (Acute) 08/2018 BMI 17.9 Hx of abnormal cervical Pap smear (Acute) 2018 [facility]. Nl colpo bx. Plan repeat Pap/HPV in 2018 and 2019. Asthma (Acute 01/31/13) Atypical squamous cells cannot exclude high grade squamous intraepithelial lesion on cytologic smear of cervix ([facility]-H) (Acute 08/19/17) Medical History Throat cancer Removal and rebuilt esophagus. Dilation of throat Surgical History Absent esophagus Removal and rebuild Family History Father Mother Social History Smoking/Tobacco Use Status: Former Tobacco Use Second Hand Exposure: No Smoking risk assessment performed?: Yes Alcohol Intake: current Alcohol Intake frequency: 0-2 drinks per day Drug use: Never Substance use type: does not use Household members: spouse and other Details: [employer] Housing: other Details: has been undergoing extensive renovations for past 8mo Number of Children: 3 What is your relationship status?: Panel score (0-1 are the most socially isolated patients): 1 Seatbelt use: always Female Reproductive History Menstrual Menopause type: natural History History 3 Para Hx # Term Pregnancies 3 Multiple births Hx # Pregnancies Ectopic pregnancies AB induced Hx Number of Living Children AB spontaneous Meds Allergies and Home Medications Allergies Allergy/AdvReac Type Severity Reaction Status Date / Time No Known Allergies Allergy Verified 05/01/22 08:45 Home Medications Medication Instructions Recorded Confirmed Type fluticasone 100 mcg-salmeterol 50 1 puff inhalation BID 01/31/13 05/01/22 History mcg/dose blistr powdr for inhalation (Advair Diskus) lorazepam 0.5 mg tablet 0.5 mg PO PRN 01/31/13 05/01/22 History mometasone 50 mcg/actuation nasal 2 spry NS DAILY 01/31/13 05/01/22 History spray (Nasonex) multivitamin (Daily Vitamin tablet) 1 ea PO DAILY 01/31/13 05/01/22 History albuterol sulfate 90 mcg/actuation 1 - 2 puff inhalation Q4H PRN 07/31/14 05/01/22 History aerosol inhaler (ProAir HFA) acetaminophen 325 mg capsule 325 mg PO ONCE PRN 02/25/22 05/01/22 History (Tylenol) artifi.tears(hypromellose)(PF) 0.3 1 drp ophthalmic (eye) 4-8XD PRN 02/25/22 05/01/22 History % eye drops montelukast 4 mg oral granules in mg feeding tube 02/25/22 02/25/22 History packet Exam Const General: cooperative, comfortable, no acute distress and frail appearing Nutritional Appearance: thin and underweight Orientation: awake and oriented x3 [facility] Face images: 1. Laryngostomy with TEP Mouth: moist mucous membranes Teeth and gingiva: dentition normal Eyes General: appearance normal, both eyes and all related structures Conjunctivae: conjunctivae normal Sclera: sclerae normal Neck Neck: trachea midline and supple Resp Effort & Inspection: normal respiratory effort and able to speak in complete sentences Auscultation: clear to auscultation bilaterally and no wheezes Cardio Jugular venous pressure: no JVD Rate: regular rate Rhythm: regular rhythm Heart Sounds: S1 normal and S2 normal GI Inspection: non-distended Palpation: soft, no guarding, no hernias and nontender Auscultation: normal bowel sounds Other: Gastrostomy Skin General skin exam: dry skin and turgor decreased Neuro General: patient alert, patient awake and patient oriented x3 Cognition: normal cognition Extrem Right lower extremity: no edema Left lower extremity: no edema Results Labs Result diagrams: 05/01/22 09:02 05/01/22 09:02 Labs: Laboratory Results - last 24 hr 05/01/22 05/01/22 05/01/22 09:02 09:02 09:02 WBC 5.79 RBC 2.90 L Hgb 9.0 L Hct 27.3 L MCV 94 MCH 31.0 MCHC 33.0 RDW 13.8 Plt Count 288 MPV 10.5 Immature Gran % 0.7 Neutrophils % 67.2 Lymphocytes % 22.1 Monocytes % 5.4 Eosinophils % 4.1 Basophils % 0.5 Nucleated RBC % 0.0 Absolute Neutrophils 3.89 Absolute Lymphocytes 1.28 Absolute Monocytes 0.31 Absolute Eosinophils 0.24 Absolute Basophils 0.03 PT 9.4 INR 0.9 D-Dimer Sodium 134 L Potassium 3.7 Chloride 100 Carbon Dioxide 28.0 Anion Gap 6.0 BUN 26 H Creatinine 0.8 Est GFR (CKD-EPI 2020) 82.23 Glucose 161 H Calcium 8.6 Magnesium 1.7 L Total Bilirubin 0.2 AST 19 ALT 16 Alkaline Phosphatase 63 Troponin I < 50 Total Protein 7.1 Albumin 3.5 COVID-19 Source SARS-CoV-2 (PCR) Patient ABO/Rh Antibody Screen Crossmatch 05/01/22 05/01/22 05/01/22 09:02 09:02 12:54 WBC RBC Hgb Hct MCV MCH MCHC RDW Plt Count MPV Immature Gran % Neutrophils % Lymphocytes % Monocytes % Eosinophils % Basophils % Nucleated RBC % Absolute Neutrophils Absolute Lymphocytes Absolute Monocytes Absolute Eosinophils Absolute Basophils PT INR D-Dimer 516 H Sodium Potassium Chloride Carbon Dioxide Anion Gap BUN Creatinine Est GFR (CKD-EPI 2020) Glucose Calcium Magnesium Total Bilirubin AST ALT Alkaline Phosphatase Troponin I Total Protein Albumin COVID-19 Source Nasal/Nares SARS-CoV-2 (PCR) Negative Patient ABO/Rh O Positive Antibody Screen NEGATIVE Crossmatch See Detail Last Vital Signs Temp 97.0 F L 05/01/22 13:29 Pulse 83 05/01/22 13:29 Resp 15 05/01/22 13:29 BP 104/70 05/01/22 13:29 Pulse Ox 99 05/01/22 13:29 PAWSS Have you Been Recently Intoxicated or Drunk Within the Last 30 days?: No Have you Ever Experienced Previous Episodes of Alcohol Withdrawal?: No Have you ever Experienced Withdrawal Seizures?: No Have you ever Experienced Delirium Tremens(DT)s?: No Have you ever undergone Alcohol Rehabilitation Treatment (i.e, inpt ot outpatient treatment programs)?: No Have you ever Experienced Blackouts?: No Have you ever Combined Alcohol with other Downers within the last 90 days?: No Have you ever Combined Alcohol with any other Substance of Abuse during the last 90 days?: No Result: 0
--- NOTE | 2022-05-01 14:06 | ANES.PREOP_ITS ---
General Info Height: 5 ft 3 in Weight: 42.955 kg Body Mass Index (BMI): 16.7 Surgical Procedure: Operation Date: 05/01/22 14:05 Proposed Procedure Side Surgeon p Gastroscopy Tarun Garcia MD Meds Allergies and Home Medications Allergies Allergy/AdvReac Type Severity Reaction Status Date / Time No Known Allergies Allergy Verified 05/01/22 08:45 Home Medication Medication Instructions Recorded fluticasone 100 mcg-salmeterol 50 1 puff inhalation BID 01/31/13 mcg/dose blistr powdr for inhalation (Advair Diskus) lorazepam 0.5 mg tablet 0.5 mg PO PRN 01/31/13 mometasone 50 mcg/actuation nasal 2 spry NS DAILY 01/31/13 spray (Nasonex) multivitamin (Daily Vitamin tablet) 1 ea PO DAILY 01/31/13 albuterol sulfate 90 mcg/actuation 1 - 2 puff inhalation Q4H PRN 07/31/14 aerosol inhaler (ProAir HFA) acetaminophen 325 mg capsule 325 mg PO ONCE PRN 02/25/22 (Tylenol) artifi.tears(hypromellose)(PF) 0.3 1 drp ophthalmic (eye) 4-8XD PRN 02/25/22 % eye drops montelukast 4 mg oral granules in mg feeding tube 02/25/22 packet Current Visit Medications: Current Medications Generic Name Dose Route Start Last Admin Trade Name Freq PRN Reason Stop Dose Admin Sodium Chloride 500 mls @ 0 mls/hr 05/01/22 08:47 Saline 500ml Bag IV PRN PRN As Directed Sodium Chloride 500 mls @ 0 mls/hr 05/01/22 11:58 Saline 500ml Bag IV PRN PRN As Directed IV Miscellaneous Supplies 1 each 05/01/22 09:00 Iv Access IV DIRECTED ASHISH IV Miscellaneous Supplies 1 each 05/01/22 09:30 Iv Access IV DIRECTED ASHISH IV Miscellaneous Supplies 1 each 05/01/22 12:00 Iv Access IV DIRECTED ASHISH Sodium Chloride 0 ml 05/01/22 08:47 Normal Saline Flush 10 Ml Syr IVP PRN PRN Sodium Chloride 0 ml 05/01/22 09:29 Normal Saline Flush 10 Ml Syr IVP PRN PRN Sodium Chloride 0 ml 05/01/22 11:58 Normal Saline Flush 10 Ml Syr IVP PRN PRN PFSH Active Problems Active Problems: Problem Status Onset Code Acute upper gastrointestinal bleeding K92.2 Anemia D64.9 Postmenopausal Z78.0 Absent esophagus Q39.8 Underweight R63.6 Hx of abnormal cervical Pap smear Z87.898 Asthma 01/31/13 J45.909 Atypical squamous cells cannot exclude high grade squamous intraepithelial lesion on cytologic smear of cervix (ASC-H) 08/19/17 R87.611 Medical History Medical History Throat cancer Removal and rebuilt esophagus. Dilation of throat Surgical History Surgical History Absent esophagus Removal and rebuild Tobacco Smoking/Tobacco Use Status: Former Tobacco Use Second hand exposure: No Alcohol Alcohol Intake: current Alcohol intake frequency: 0-2 drinks per day Substance Use Substance use: Never Substance use type: does not use Prental History History 3 Para Hx # Term Pregnancies 3 Multiple births Hx # Pregnancies Ectopic pregnancies AB induced Hx Number of Living Children AB spontaneous Vital Signs and Lab Results Vital Signs Most Recent Vital Signs in EMR: Most Recent Vital Signs Temp Pulse Resp BP Pulse Ox 36.1 C L 83 15 104/70 99 05/01/22 13:29 05/01/22 13:29 05/01/22 13:29 05/01/22 13:29 05/01/22 13:29 Lab Results Result Diagrams: 05/01/22 09:02 05/01/22 09:02 Blood Type / Crossmatch: Patient ABO/Rh O Positive 05/01/22 Antibody Screen NEGATIVE 05/01/22 Crossmatch See Detail 05/01/22 Complete Blood Count: White Blood Count 5.79 10^3/uL (4.4-10.8) 05/01/22 09:02 Red Blood Count 2.90 10^6/uL (3.93-5.22) L 05/01/22 09:02 Hemoglobin 9.0 g/dL (11.2-15.7) L 05/01/22 09:02 Hematocrit 27.3 % (36.0-46.0) L 05/01/22 09:02 Platelet Count 288 10^3/uL (130-400) 05/01/22 09:02 Complete Metabolic Panel: Sodium 134 mmol/L (136-145) L 05/01/22 09:02 Potassium 3.7 mmol/L (3.5-5.1) 05/01/22 09:02 Chloride 100 mmol/L (98-107) 05/01/22 09:02 Carbon Dioxide 28.0 mmol/L (21.0-32.0) 05/01/22 09:02 BUN 26 mg/dL (7-18) H 05/01/22 09:02 Creatinine 0.8 mg/dL (0.55-1.02) 05/01/22 09:02 Est GFR (CKD-EPI 2020) 82.23 (mL/min/1.73m2) 05/01/22 09:02 Magnesium 1.7 mg/dL (1.8-2.4) L 05/01/22 09:02 Calcium 8.6 mg/dL (8.5-10.1) 05/01/22 09:02 Albumin 3.5 g/dL (3.4-5.0) 05/01/22 09:02 Glucose 161 mg/dL (74-106) H 05/01/22 09:02 Liver Function Panel: Alanine Aminotransferase (ALT/SGPT) 16 U/L (14-59) 05/01/22 09: 02 Aspartate Amino Transf (AST/SGOT) 19 U/L (15-37) 05/01/22 09:02 Coagulation Panel: INR International Normalized Ratio 0.9 (0.9-1.1) 05/01/22 09:0 2 Prothrombin Time 9.4 sec (9.3-11.0) 05/01/22 09:02 D-Dimer 516 ng/mlFEU (<500) H 05/01/22 09:02 Cardiac Panel: Troponin I < 50 ng/L (<or=60) 05/01/22 Arterial Blood Gas: No Data to Display Venous Blood Gas: No Data to Display Pancreas Panel: No Data to Display Thyroid Panel: No Data to Display Infectious Disease: Coronavirus (COVID-19)(PCR) Negative (Negative) 05/01/22 12:54 Coronavirus 2019 Source Nasal/Nares 05/01/22 12:54 Blood Cultures: No Data to Display Toxicology Panel: No Data to Display Imaging and Studies Imaging and Studies Study information below may be from another EMR and interpreted by another provider. Please see original notes in EMR for more complete details. EKG Summary: 05/01/22 Conclusion Sinus rhythm...normal P axis, V-rate 60- 99 Probable left atrial enlargement...P >50mS, <-0.10mV V1 Right bundle branch block...QRSd>120, terminal axis(90,270) sinus rhythm 87, normal axis, right bundle branch block present on prior 08/15/2010, no STEMI, nondiagnostic EKG
[2022-05-01] MEDS: Lactated Ringers 1,000 ML 30 ML IV (14:50)
--- NOTE | 2022-05-01 15:12 | ROE_ITS ---
Date of service: 05/01/22 Time of Service: 15:12 Operative Note Operative Note DATE OF PROCEDURE: 05/01/22 PRE-OP DIAGNOSIS: Upper gastrointestinal bleeding POST-OP DIAGNOSIS: other (Esophageal stricture) PROCEDURE: Diagnostic esophagoscopy SURGEON: Tarun Garcia ANESTHESIA TYPE: MAC Refer to Anesthesia Record ESTIMATED BLOOD LOSS: 0 PATHOLOGY: none sent COMPLICATIONS: Other (Esophageal stricture preventing complete esophageal eval uation) Patient was transported to: floor Patient's condition: stable Indications: Madison is a 66-year-old woman with a known esophageal stricture. She underwent esophageal dilation 4 days ago. She comes in today with lightheadedness and fatigue. She is found to have acute blood loss anemia, and her history of melena suggests postprocedural bleeding most likely from her dilation Findings: Tight esophageal stricture at the upper portion of the esophagus Procedure Description: After the initiation of monitored anesthetic care, I inserted the standard gastroscope down the mouth towards the esophagus. Some of the tongue base, and the origin of the proximal esophagus. There appeared to be a lumen here. The size of the gastroscope prevented adequate visualization. Therefore, I switched to an [id number] 180N scope. Again, I was able to traverse the mouth and hypopharynx down to the origin of the esophagus. I was able to advance the scope into the proximal portion of an esophageal stricture. There was no obvious bleeding here. Although I could see about 1 cm distal to the stricture, I was unable to pass the scope through the stricture. Based on the history, her laryngoscopy and hypopharyngeal reconstruction, and her known esophageal stricture, I felt the safest thing to do at that point was to terminate the procedure. We will go ahead and transfuse packed red blood cells to correct the acute blood loss anemia. If she has ongoing signs of bleeding, then she will need to be transferred to a tertiary care center with more advanced endoscopy equipment.
--- NOTE | 2022-05-01 15:21 | W.ANESPOSTOP ---
Postoperative Evaluation Date, Time and Location Date Performed: 05/01/22 Time Performed: 15:21 Patient Location: PACU Vital Signs Most Recent Imported Vital Signs: Most Recent Vital Signs Temp Pulse Resp BP Pulse Ox 36.9 C 78 17 82/51 L 98 05/01/22 15:13 05/01/22 15:13 05/01/22 15:13 05/01/22 15:13 05/01/22 15:13 Pain Score Most Recent Pain Score: Most Recent Pain Score Pain Level 0 05/01/22 13:29 Assessment Mental Status: Awake (Alert & Oriented to Patient Baseline) Airway and Respiratory Function: Patent airway with normal (patient baseline) respiratory exam Cardiovascular Function: Hemodynamically Stable Hydration Status: Adequately Hydrated Nausea & Vomiting: No Nausea or Vomiting Pain: Pt. Denies Any Pain Peripheral Nerve Block: Patient did not receive a nerve block
--- NOTE | 2022-05-01 17:38 | PDOC.CMIN ---
- If Service Date Differs Date of service: 05/01/22 Time of Service: 17:38 Care Management Initial Assess REASON FOR HOSPITALIZATION:: UGI Bleed PAST MEDICAL HISTORY/PAST SURGICAL HISTORY:: All Active Problems . Acute upper gastrointestinal bleeding (Acute). Anemia (Chronic). Postmenopausal (Acute). Absent esophagus (Acute). Underweight (Acute). 08/2018 BMI 17.9. Hx of abnormal cervical Pap smear (Acute). 2018 [facility]. Nl colpo bx. Plan repeat Pap/HPV in 2018 and 2019. Asthma (Acute 01/31/13). Atypical squamous cells cannot exclude high grade squamous intraepithelial lesion on cytologic smear of cervix (ASC-H) (Acute 08/19/17). Medical History . Throat cancer. Removal and rebuilt esophagus. Dilation of throat. Surgical History . Absent esophagus. Removal and rebuild PREVIOUS FUNCTIONAL STATUS/SOCIAL/FAMILY SUPPORTS:: Madison lives in [place], [place] with her Gwyn. They have 5 children and 5 grandchildren, all of whom live in the area. 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 Madison is independent at baseline and does not receive any community services. CURRENT FUNCTIONAL STATUS:: Madison was sitting up in bed finishing her dinner when CM met with her. She was very pleasant and engaged well with CM. She had an EGD this afternoon and is now receiving a blood transfusion. Madison is unable to talk but communicated well through mouthing words and in writing on her tablet. She anticipates being discharged tomorrow and does not feel she will need any additional services. ADVANCE DIRECTIVES:: on file and [facility] is [facility] Has patient been provided with info about the portal/API?: Yes Did the patient sign up for the portal?: No CODE STATUS:: Full Code INSURANCE COVERAGE / FINANCIAL ISSUES:: JERSON RAMOS CURRENT HOME/COMMUNITY SERVICES/EQUIPMENT:: none PRIMARY CARE PHYSICIAN:: Roni Babin POTENTIAL DISCHARGE NEEDS:: follow up with PCP and plan of care PATIENT/FAMILY EDUCATION NEEDS:: Review of discharge instructions, limitations, follow up plan, Ask Me Three TRANSPORTATION:: via private vehicle with PLAN:: Anticipate Madison will be discharged home with no new services. She will follow up with her community providers and plan of care and transport with family. CM will follow and support discharge needs.
[2022-05-01] MEDS: Calcium Carbonate *TUMS* 500 MG CHEW PO (17:54)
[2022-05-01] MEDS: LORazepam 0.5 MG TAB PO (21:53)
[2022-05-02 03:19] VITALS: BP 125/65; PULSE 72; RESP 17; TEMP 36.3; O2SAT 92
[2022-05-02 07:15] VITALS: PULSE 72
[2022-05-02 07:20] LABS: HCT 29.3 % (36.0-46.0); HGB 9.8 g/dL (11.2-15.7); MCH 30.3 pg (27.0-33.0); MCHC 33.4 % (32.0-36.0); MCV 91 fL (80-95); MPV 10.8 fL (8.0-11.0); Platelet Count 232 10^3/uL (130-400); RBC 3.23 10^6/uL (3.93-5.22); RDW 17.8 % (11.7-14.6); RDW-SD 58.5 fL; WBC 5.31 10^3/uL (4.4-10.8)
[2022-05-02] MEDS: Normal Saline Flush 10 ML SYR IVP (07:36)
[2022-05-02] MEDS: Pantoprazole 40 MG VIAL IVP (07:36)
[2022-05-02 08:01] VITALS: BP 96/60; PULSE 73; RESP 18; TEMP 36.2; O2SAT 96
[2022-05-02 11:16] VITALS: BP 113/72; PULSE 77; RESP 18; TEMP 35.4; O2SAT 98
--- NOTE | 2022-05-02 12:13 | W.PM.PROGNOT ---
Date of Service Date of service: 05/02/22 Time of Service: 11:45 Assessment and Plan Assessment and plan (1) Acute upper gastrointestinal bleeding: Status: Acute Assessment and plan: a/p: 66 yo woman with esophageal stricture 2nd to XRT years ago. Acute bleeding after dilation earlier this weeks is clinicaly resolved. She is HD stable. she can be discharged home on her regular/usual diet She will call her PCP on Wednesday to followup She knows to return to the ER if any recurrent symptoms or bleeding Subjective Subjective Interval history since last seen: Feels much better. Feels herself. No more dark stools or bleeding. Hgb is up at 9.8 She is hoping to go home. Exam Narrative Exam Narrative: Gen: Nontoxic and comfortable. Neuro: AxO x3 Psych: Appropriate mood and affect, good insight and understanding. Objective Last Vital Signs Temp 95.7 F L 05/02/22 11:16 Pulse 77 05/02/22 11:16 Resp 18 05/02/22 11:16 BP 113/72 05/02/22 11:16 Pulse Ox 98 05/02/22 11:16 Laboratory Results - last 24 hr 05/01/22 05/01/22 05/02/22 09:02 12:54 06:50 WBC 5.31 RBC 3.23 L Hgb 9.8 L Hct 29.3 L MCV 91 MCH 30.3 MCHC 33.4 RDW 17.8 H Plt Count 232 MPV 10.8 COVID-19 Source Nasal/Nares SARS-CoV-2 (PCR) Negative Patient ABO/Rh O Positive Antibody Screen NEGATIVE Crossmatch See Detail PAWSS Have you Been Recently Intoxicated or Drunk Within the Last 30 days?: No Have you Ever Experienced Previous Episodes of Alcohol Withdrawal?: No Have you ever Experienced Withdrawal Seizures?: No Have you ever Experienced Delirium Tremens(DT)s?: No Have you ever undergone Alcohol Rehabilitation Treatment (i.e, inpt ot outpatient treatment programs)?: No Have you ever Experienced Blackouts?: No Have you ever Combined Alcohol with other Downers within the last 90 days?: No Have you ever Combined Alcohol with any other Substance of Abuse during the last 90 days?: No Result: 0
--- NOTE | 2022-05-02 14:11 | PDOC.CMDIS ---
- If Service Date Differs Date of service: 05/02/22 Time of Service: 14:11 LACE Index Scoring Tool - Questions: Length of Stay (in days): 1 Acuity (Admit via E.D.?): Yes Comorbidities: Any Tumor E.D. Visits: 1 - Answers: Total Score: 7 Risk of Readmission: Low Risk Care Management Discharge Reason for Hospitalization: UGI Bleed Discharge Plan: Madison is discharged home with no services. She will follow up with her PCP and plan of care as instructed. She is driven home by family via private vehicle. Patient/Family Education Needs: Review of discharge instructions; Ask Me Three.
== END 2022-05-02 13:43 | disposition home or self-care (01) | DRG 920 ==
LOC: ER 12:26 → MS 13:27
PROVIDERS: Physician Assistant; Student in an Organized Health Care Education/Training Program; Admitting Provider Surgery; Emergency Provider Student in an Organized Health Care Education/Training Program; PCP Internal Medicine; Visit Provider Surgery
PROC: 0DJ68ZZ Inspection of Stomach, Via Natural or Artificial Opening Endoscopic (ICD-10-PCS; CPT 43235; principal; 2022-05-01 14:00)
DX: K91.840 Postprocedural hemorrhage of a digestive system organ or structure following a digestive system procedure (principal); D62 Acute posthemorrhagic anemia; Z68.1 Body mass index [BMI] 19.9 or less, adult; K22.2 Esophageal obstruction; R63.6 Underweight; J45.909 Unspecified asthma, uncomplicated; Z85.810 Personal history of malignant neoplasm of tongue; Z85.21 Personal history of malignant neoplasm of larynx; Z90.02 Acquired absence of larynx; Y84.2 Radiological procedure and radiotherapy as the cause of abnormal reaction of the patient, or of later complication, without mention of misadventure at the time of the procedure
CPT/HCPCS: 43200; 36415; 80053; 85027; 86850; 86900; 86901; 86920; 87635; 93005; 99285; 83735; 84484; 85025; 85379; 85610; 93010; G0378; J2704; P9016

== ENCOUNTER 2022-05-12 20:57 | Outpatient (REF) | payer BC, SELFPAY ==
[2022-05-12 14:59] LABS: Abs Immature Grans 0.03 10^3/uL (0.0-0.06); Absolute Basophil Count 0.04 10^3/uL (0.0-0.2); Absolute Eosinophil Count 0.25 10^3/uL (0.0-0.7); Absolute Lymphocyte Count 0.88 10^3/uL (1.2-3.4); Absolute Monocyte Count 0.37 10^3/uL (0.1-0.8); Absolute Neutrophil Count 5.99 10^3/uL (1.2-6.7); Basophils % 0.5; Eosinophils % 3.3; HCT 25.4 % (36.0-46.0); HGB 8.2 g/dL (11.2-15.7); Immature Grans % 0.4; Lymphocytes % 11.6; MCH 29.8 pg (27.0-33.0); MCHC 32.3 % (32.0-36.0); MCV 92 fL (80-95); Monocytes % 4.9; Neutrophils % 79.3; Platelet Count 393 10^3/uL (130-400); RBC 2.75 10^6/uL (3.93-5.22); RDW 16.5 % (11.7-14.6); RDW-SD 55.2 fL; WBC 7.56 10^3/uL (4.4-10.8)
== END 2022-05-12 20:58 | disposition home or self-care (01) ==
LOC: NCHCN 20:57
PROVIDERS: PCP Internal Medicine; Visit Provider Internal Medicine
DX: J45.20 Mild intermittent asthma, uncomplicated (principal)
CPT/HCPCS: 85025

== ENCOUNTER 2022-05-15 15:43 | Outpatient (REF) | payer BC, SELFPAY ==
[2022-05-15 20:42] LABS: HCT 29.2 % (36.0-46.0); HGB 9.4 g/dL (11.2-15.7); MCH 29.9 pg (27.0-33.0); MCHC 32.2 % (32.0-36.0); MCV 93 fL (80-95); MPV 11.6 fL (8.0-11.0); Platelet Count 413 10^3/uL (130-400); RBC 3.14 10^6/uL (3.93-5.22); RDW 16.3 % (11.7-14.6); RDW-SD 54.4 fL; WBC 6.76 10^3/uL (4.4-10.8)
== END 2022-05-15 15:44 | disposition home or self-care (01) ==
LOC: NCHCN 15:43
PROVIDERS: PCP Internal Medicine; Visit Provider Internal Medicine
DX: R13.10 Dysphagia, unspecified (principal); K22.2 Esophageal obstruction; Z93.0 Tracheostomy status
CPT/HCPCS: 85027

== ENCOUNTER 2022-05-25 13:04 | Outpatient (REF) | payer BC, SELFPAY ==
[2022-05-25 14:49] LABS: HCT 31.6 % (36.0-46.0); HGB 10.2 g/dL (11.2-15.7); MCH 30.2 pg (27.0-33.0); MCHC 32.3 % (32.0-36.0); MCV 94 fL (80-95); MPV 11.2 fL (8.0-11.0); Platelet Count 335 10^3/uL (130-400); RBC 3.38 10^6/uL (3.93-5.22); RDW 15.6 % (11.7-14.6); RDW-SD 53.9 fL; WBC 6.73 10^3/uL (4.4-10.8)
[2022-05-25 15:06] LABS: Iron 31 ug/dL (50-170); Total Iron Binding Capacity 371 ug/dL (250-450); Transferrin Sat 8 % (15-50)
== END 2022-05-25 13:05 | disposition home or self-care (01) ==
LOC: NCHCN 13:04
PROVIDERS: PCP Internal Medicine; Visit Provider Internal Medicine
DX: D64.9 Anemia, unspecified (principal)
CPT/HCPCS: 85027; 83540; 83550

== ENCOUNTER 2022-07-20 11:27 | Outpatient (REF) | payer MEDICARE, BC, SELFPAY ==
[2022-07-20 15:19] LABS: HCT 34.9 % (36.0-46.0); HGB 11.2 g/dL (11.2-15.7); MCH 28.1 pg (27.0-33.0); MCHC 32.1 % (32.0-36.0); MCV 88 fL (80-95); Platelet Count 330 10^3/uL (130-400); RBC 3.99 10^6/uL (3.93-5.22); RDW 15.2 % (11.7-14.6)
[2022-07-20 15:34] LABS: Iron 39 ug/dL (50-170)
== END 2022-07-20 11:28 | disposition home or self-care (01) ==
LOC: NCHCN 11:27
PROVIDERS: PCP Internal Medicine; Visit Provider Internal Medicine
DX: D64.9 Anemia, unspecified (principal); E61.1 Iron deficiency
CPT/HCPCS: 85027; 83540

== ENCOUNTER 2023-03-02 22:00 | Outpatient (REF) | payer MEDICARE, BC, SELFPAY ==
[2023-03-02 22:19] LABS: Abs Immature Grans 0.01 10^3/uL (0.0-0.06); Absolute Basophil Count 0.04 10^3/uL (0.0-0.2); Absolute Lymphocyte Count 1.24 10^3/uL (1.2-3.4); Absolute Monocyte Count 0.35 10^3/uL (0.1-0.8); Absolute Neutrophil Count 5.57 10^3/uL (1.2-6.7); Basophils % 0.5; Eosinophils % 2.7; HCT 34.7 % (36.0-46.0); HGB 11.6 g/dL (11.2-15.7); Immature Grans % 0.1; Lymphocytes % 16.7; MCH 30.9 pg (27.0-33.0); MCHC 33.4 % (32.0-36.0); MCV 93 fL (80-95); MPV 11.5 fL (8.0-11.0); Monocytes % 4.7; Neutrophils % 75.3; Platelet Count 273 10^3/uL (130-400); RBC 3.75 10^6/uL (3.93-5.22); RDW-SD 47.7 fL; WBC 7.41 10^3/uL (4.4-10.8)
[2023-03-02 22:26] LABS: Iron 59 ug/dL (50-170); Total Iron Binding Capacity 333 ug/dL (250-450); Transferrin Sat 18 % (15-50)
== END 2023-03-02 22:01 | disposition home or self-care (01) ==
LOC: NCHCN 22:00
PROVIDERS: PCP Internal Medicine; Visit Provider Internal Medicine
DX: K22.2 Esophageal obstruction (principal); F43.0 Acute stress reaction; J45.20 Mild intermittent asthma, uncomplicated; Z87.19 Personal history of other diseases of the digestive system; D64.9 Anemia, unspecified
CPT/HCPCS: 83540; 83550; 85025

== ENCOUNTER → 2023-04-21 01:15 | Outpatient (CLI) | payer MEDICARE, BC, SELFPAY ==
--- NOTE | 2023-04-21 11:39 | DI.MAMMO_ITS ---
Exam(s) MAMMO SCREENING EXAM: MAMMO SCREENING CLINICAL HISTORY: SCREENING, PREVENTIVE [facility] CARE,Z00.00 TECHNIQUE: Mammograms were interpreted according to the usual protocol including computer analysis w [employer] CAD system, tomosynthesis and C-view imaging. COMPARISON: 2013 through 2020 FINDINGS: The breasts are composed of heterogeneously dense fibroglandular densities, Breast Density category C . No suspicious masses or suspicious microcalcifications are seen. No skin thickening or abnormal axillary lymph nodes are seen. There has been no significant change from prior exams. IMPRESSION: BI-RADS Category 1, Negative mammogram. Yearly screening mammography is recommended. Breast Density Category C, heterogeneously Dense. The mammogram demonstrates the patient's breast tissue is dense. Dense breast tissue is very common a nd is not abnormal but dense breast tissue can make it harder to find cancer on a mammogram. Also, de nse breast tissue may increase breast cancer risk. This information about the result of the mammogram report was provided to the patient to raise their awareness. Use this report when you speak with the patient about their risks for breast cancer, which includes their family history. At that time, you may recommend additional screening tests (Ultrasound or MRI) as they might be useful based on their r isk. A negative radiographic report should not delay biopsy if a dominant or clinically suspicious mass is present. Up to ten percent of cancers are not identified on mammography. A negative report may reinforce clinical impression. Adenosis and dense breasts may obscure an underlying neoplasm. False positive reports average 6 to 10%.
== END ==
PROVIDERS: PCP Internal Medicine; Visit Provider Internal Medicine
DX: Z12.31 Encounter for screening mammogram for malignant neoplasm of breast (principal); R92.333 Mammographic heterogeneous density, bilateral breasts
CPT/HCPCS: 77063; 77067

== ENCOUNTER 2024-03-02 17:54 | Outpatient (REF) | payer MEDICARE, BC, SELFPAY ==
[2024-03-02 14:29] LABS: HCT 37.8 % (36.0-46.0); HGB 12.4 g/dL (11.2-15.7); MCHC 32.8 % (32.0-36.0); MCV 95 fL (80-95); MPV 10.8 fL (8.0-11.0); Platelet Count 295 10^3/uL (130-400); RDW 13.4 % (11.7-14.6); RDW-SD 46.7 fL; WBC 9.12 10^3/uL (4.4-10.8)
[2024-03-02 14:46] LABS: BUN 15 mg/dL (7-18); CREATININE 0.8 mg/dL (0.55-1.02); Calcium 9.3 mg/dL (8.5-10.1); Calculated LDL 110 mg/dL (<100); Chloride 94 mmol/L (98-107); Cholesterol 235 mg/dL (<200); Estimated GFR 81.21 (mL/min/1.73m2); Glucose 92 mg/dL (74-106); HDL Cholesterol 106 mg/dL (40-60); Potassium 4.9 mmol/L (3.5-5.1); Sodium 130 mmol/L (136-145); Triglyceride 95 mg/dL (<150)
== END 2024-03-02 17:55 | disposition home or self-care (01) ==
LOC: NCHCN 17:54
PROVIDERS: PCP Internal Medicine; Visit Provider Family Medicine
DX: C15.3 Malignant neoplasm of upper third of esophagus (principal)
CPT/HCPCS: 80048; 80061; 85027

== ENCOUNTER 2024-03-09 20:47 | Outpatient (REF) | payer MEDICARE, BC, SELFPAY ==
[2024-03-09 17:59] LABS: Anion Gap 7.1 mmol/L (3-11); BUN 18 mg/dL (7-18); CO2 28.9 mmol/L (21.0-32.0); CREATININE 0.8 mg/dL (0.55-1.02); Calcium 9.6 mg/dL (8.5-10.1); Chloride 94 mmol/L (98-107); Estimated GFR 81.21 (mL/min/1.73m2); Glucose 121 mg/dL (74-106); Potassium 4.3 mmol/L (3.5-5.1); Sodium 130 mmol/L (136-145)
== END 2024-03-09 20:48 | disposition home or self-care (01) ==
LOC: NCHCN 20:47
PROVIDERS: PCP Family Medicine; Visit Provider Family Medicine
DX: E87.1 Hypo-osmolality and hyponatremia (principal)
CPT/HCPCS: 80048

== ENCOUNTER 2024-04-25 01:04 | Outpatient (CLI) | payer MEDICARE, BC, SELFPAY ==
--- NOTE | 2024-04-25 11:45 | DI.MAMMO_ITS ---
Exam(s) MAMMO SCREENING EXAM: MAMMO SCREENING CLINICAL HISTORY: Screening, Z12.31 TECHNIQUE: Bilateral full field digital CC and MLO mammographic images were obtained with 3D tomosyn thesis and utilizing computer aided detection (CAD). COMPARISON: Available for comparison. FINDINGS: Masses/Architectural Distortion: None seen. Microcalcifications: No suspicious pleomorphic-type are seen. Skin Thickening/Nipple Retraction: None. IMPRESSION: 1. No significant interval change with no specific features of malignancy noted. 2. Unless there is more urgent need, screening mammography is recommended, as per [employer] guidelines. BI-RADS Category 1 - Negative Breast Density - Category C - Heterogeneously dense Breast density category C or D implies that the patient has dense breast tissue. Dense breast tissue is very common and is not abnormal but dense breast tissue can make it harder to find cancer on a ma mmogram. Also, dense breast tissue may increase their breast cancer risk. This information about the result of the mammogram report was provided to the patient to raise their awareness. Use this report when you speak with the patient about their risks for breast cancer, which includes their family hist ory. At that time, you may recommend for more screening tests (Ultrasound or MRI) as they might be us eful based on their risk. A negative radiographic report should not delay biopsy if a dominant or clinically suspicious mass is present. Up to ten percent of cancers are not identified on mammography. A negative report may reinforce clinical impression. Adenosis and dense breasts may obscure an underlying neoplasm. False positive reports average 6 to 10%. Patient will receive a letter notifying them of these results.
== END 2024-04-25 01:24 ==
PROVIDERS: PCP Family Medicine; Visit Provider Family Medicine
DX: Z12.31 Encounter for screening mammogram for malignant neoplasm of breast (principal)
CPT/HCPCS: 77063; 77067

== ENCOUNTER 2025-03-15 17:45 | Outpatient (REF) | payer MEDICARE, BC, SELFPAY ==
[2025-03-15 15:35] LABS: Anion Gap 6.7 mmol/L (3-11); BUN 11 mg/dL (7-18); CO2 30.3 mmol/L (21.0-32.0); Calcium 9.3 mg/dL (8.5-10.1); Chloride 94 mmol/L (98-107); Estimated GFR 94.73 (mL/min/1.73m2); Glucose 91 mg/dL (74-106); Potassium 4.3 mmol/L (3.5-5.1); Sodium 131 mmol/L (136-145); TSH (W/Ref FT4) 14.34 uIU/mL (0.36-3.74)
== END 2025-03-15 17:46 | disposition home or self-care (01) ==
LOC: NCHCN 17:45
PROVIDERS: PCP Family Medicine; Visit Provider Family Medicine
DX: E87.1 Hypo-osmolality and hyponatremia (principal)
CPT/HCPCS: 80048; 84439; 84443

== ENCOUNTER → 2025-04-26 02:04 | Outpatient (CLI) | payer MEDICARE, BC, SELFPAY ==
--- NOTE | 2025-04-26 | DI.MAMMO_ITS ---
Exam(s) MAMMO SCREENING EXAM: MAMMO SCREENING CLINICAL HISTORY: SCREENING,Z12.31 TECHNIQUE: Bilateral full field digital CC and MLO mammographic images were obtained with 3D tomosynthesis and utilizing computer aided detection (CAD). COMPARISON: Comparison is made with prior examinations. FINDINGS: Masses/Architectural Distortion: No suspicious masses or areas of architectural distortion are present. Microcalcifications: No suspicious pleomorphic-type are seen. Skin Thickening/Nipple Retraction: None. IMPRESSION: 1. No significant interval change with no specific features of malignancy noted. 2. Unless there is more urgent need, screening mammography is recommended, as per [employer] guidelines. BI-RADS Category 1 - Negative Breast Density - Category C - The breast are heterogeneously dense, which may obscure small masses. Breast density Category C or D implies that the patient has dense breast tissue. Dense breast tissue can make it harder to find cancer on a mammogram. Dense breast tissue is also associated with an increased risk of breast cancer. This information about the result of the mammogram report was provided to the patient to raise their awareness. Use this report when you speak with the patient about their risks for breast cancer, which includes their family history. At that time, you may recommend additional screening tests (Ultrasound or MRI) as these tests may add significant information. A negative radiographic report should not delay biopsy if a dominant or clinically suspicious mass is present. Up to ten percent of cancers are not identified on mammography. A negative report may reinforce clinical impression. Adenosis and dense breasts may obscure an underlying neoplasm. False positive reports average 6 to 10%. Patient will receive a letter notifying them of these results.
== END ==
PROVIDERS: PCP Family Medicine; Visit Provider Family Medicine
DX: Z12.31 Encounter for screening mammogram for malignant neoplasm of breast (principal)
CPT/HCPCS: 77063; 77067

== ENCOUNTER 2025-05-31 10:59 | Outpatient (REF) | payer MEDICARE, BC, SELFPAY ==
[2025-05-31 15:42] LABS: TSH 3.56 uIU/mL (0.55-4.78)
[2025-06-01 10:00] LABS: Anion Gap 9.8 mmol/L (3-11); BUN 12 mg/dL (9-23); CO2 24.8 mmol/L (20.0-31.0); Calcium 9.2 mg/dL (8.3-10.6); Chloride 98 mmol/L (98-107); Glucose 90 mg/dL (74-106); Potassium 4.5 mmol/L (3.5-5.1); Sodium 133 mmol/L (136-145)
== END 2025-05-31 11:00 | disposition home or self-care (01) ==
LOC: NCHCN 10:59
PROVIDERS: PCP Family Medicine; Visit Provider Family Medicine
DX: E03.8 Other specified hypothyroidism (principal)
CPT/HCPCS: 80048; 84439; 84443